=== PATIENT | male | born 1965 | race Caucasian/White ===

== ENCOUNTER → 2020-08-05 10:40 | Outpatient (CLI) | payer OTHER, SELFPAY ==
--- NOTE | 2020-08-05 | DI.CT.S_ITS ---
PROCEDURE: CT CHEST WO CON INDICATIONS: Cough TECHNIQUE: Noncontrast 5 mm thick sections acquired from the pulmonary apices to the posterior costophrenic angles. 1 mm lung window, 5 mm thick coronal and sagittal and 7 mm axial MIP reformats were then acquired. For radiation dose reduction, the following was used: automated exposure control, adjustment of mA and/or kV according to patient size. COMPARISON: None. FINDINGS: Image quality: Excellent. Lungs and pleura: Bilateral calcified subpleural upper lobe lung nodules, the larger measuring 2 mm in the right upper lobe posteriorly. No acute air space opacities. No pleural effusions or pneumothorax. Central and peripheral airways are patent and normal in caliber. Minimal central bilateral perihilar bronchial wall thickening. Mediastinum: Heart size is normal. No pericardial effusion. No mediastinal adenopathy by size criteria. Normal variant bovine arch anatomy. Thoracic aorta and central pulmonary arteries are normal in size. Esophagus is normal in caliber. No hiatal hernia. Bones and chest wall: No suspicious bony lesions. No vertebral body compression fractures. No axillary or supraclavicular adenopathy by size criteria. Thyroid gland is unremarkable . Abdomen: Short linear and curvilinear calcifications in the right renal upper pole cortex and 3 mm nonobstructing stone in the upper pole of the left kidney. Visualized upper abdominal solid organs and bowel loops appear otherwise normal in the absence of contrast. IMPRESSION: 1. Minor central bronchial wall thickening may reflect bronchitis, acute or chronic, or reactive airways disease as seen in asthma. 2. 2 benign calcified bilateral upper lobe lung nodules. 3. Possible peripheral calcification of the right upper pole renal lesion. Consider full kidney evaluation with renal protocol CT scan. Dictated by: Hallie Paez M.D. on 08/05/2020 at 13:30 Approved by: Hallie Paez M.D. on 08/05/2020 at 13:37
--- NOTE | 2020-08-05 | DI.CT.S_ITS ---
PROCEDURE: CT SOFT TISSUE NECK W CON INDICATIONS: COUGH TECHNIQUE: After the administration of intravenous contrast, 3.0 mm axial sections acquired from the sella to the aortic arch. Additional oblique axial 3.0 mm sections acquired through the pharynx. 3 mm thick coronal and sagittal reformats were generated. For radiation dose reduction, the following was used: automated exposure control. COMPARISON: [facility], CT, CT CHEST WO CON, 08/05/2020, 10:46. FINDINGS: Image quality: Excellent. Lymph nodes: No enlarged lymph nodes seen throughout the neck. Vessels: Visualized vasculature appears patent. Incidental note is made of a common origin of the right brachiocephalic artery and the left common carotid artery (bovine type arch). This is considered to be a developmental variant of no clinical consequence. Neck spaces: The oropharynx, nasopharynx, and pharynx demonstrate no mucosal lesions. The vocal cords, false vocal cords, pyriform sinuses, epiglottis, vallecula, and tongue base all appear normal. Extramucosal spaces appear unremarkable. Glands: The parotid and submandibular glands appear normal. Thyroid gland demonstrates no significant abnormality. Miscellaneous: Visualized brain and orbits appear normal. Lung apices appear clear. Superficial soft tissues appear normal. Bones: No suspicious bony lesions. Visualized sinuses and mastoids appear unremarkable. Age-appropriate bony degenerative changes are seen. IMPRESSION: No pharyngeal masses or other CT abnormality is seen to suggest a cause for the patient's presenting history of cough. No enlarged lymph nodes are seen. No soft tissue masses are detected. Incidental note is made of: Bovine type aortic branching pattern Dictated by: Luis Andrew M.D. on 08/05/2020 at 11:00 Approved by: Luis Andrew M.D. on 08/05/2020 at 11:02
== END ==
PROVIDERS: PCP Family Medicine; Referring Provider Family Medicine; Visit Provider Family Medicine
DX: R05 Cough (principal); R91.8 Other nonspecific abnormal finding of lung field; Z72.0 Tobacco use; Z77.090 Contact with and (suspected) exposure to asbestos; F10.10 Alcohol abuse, uncomplicated
CPT/HCPCS: 70491; 71250; Q9967

== ENCOUNTER → 2020-08-31 10:57 | Outpatient (CLI) | payer OTHER, MEDICAID, SELFPAY ==
--- NOTE | 2020-08-31 11:44 | DI.CT.S_ITS ---
PROCEDURE: CT ABDOMEN PELVIS WO/W CON INDICATIONS: Other specified disorders of kidney and ureter TECHNIQUE: Optional 5 mm thick noncontrast images acquired from the diaphragm to the symphysis pubis. After the administration of intravenous contrast, 5 mm thick images acquired from the diaphragm to the symphysis pubis after a 10-minute delay. 2 mm thick coronal and sagittal reformats were then performed of the kidneys and ureters. For radiation dose reduction, the following was used: automated exposure control, adjustment of mA and/or kV according to patient size. COMPARISON: None. FINDINGS: Image quality: Excellent. Lung bases: Lung bases are clear. Heart size is normal. Urinary system: Both kidneys are normal in size, without hydronephrosis but there is bilateral nonobstructive nephrolithiasis on pre-contrast images. The largest calculus is located at the lower 3rd collecting system of the right kidney, measuring up to 1.6 cm AP and 8 mm transverse. No perinephric fat stranding. There is normal bilateral renal enhancement. Renal calyces appear normal in morphology when filled with contrast. Opacified portions of both ureters demonstrate normal caliber. Bladder wall thickness is normal. No calcified bladder stones. Other solid organs: Liver is normal in size and enhancement. Gallbladder appears contracted . Biliary system is non dilated. Pancreas enhances normally. Spleen is normal in size and enhancement. No adrenal nodules. Peritoneum and bowel: Bowel loops demonstrate normal wall thickness and caliber. No free fluid or air. Nodes and vessels: No retroperitoneal or mesenteric adenopathy by size criteria. Aorta and inferior vena cava are normal in size. Abdominal wall: No ventral hernias. Pelvis: No pathologic free pelvic fluid. No inguinal hernias or adenopathy. Bones: No suspicious bony lesions. No vertebral body compression fractures. IMPRESSION: Bilateral collecting system calculi are present ranging from 2 mm to 1.6 x 0.8 cm. None of these are obstructive, and within the bladder no calculus is found. There is no sign of renal cortical or urothelial neoplasm, and throughout the lower chest, abdomen and pelvis no underlying infection or neoplasm is seen. Dictated by: Omar Raya M.D. on 08/31/2020 at 15:38 Approved by: Omar Raya M.D. on 08/31/2020 at 15:42
== END ==
PROVIDERS: PCP Family Medicine; Referring Provider Family Medicine; Visit Provider Family Medicine
DX: N28.89 Other specified disorders of kidney and ureter (principal); N20.0 Calculus of kidney
CPT/HCPCS: 74178; Q9967

== ENCOUNTER → 2021-11-24 10:57 | Outpatient (CLI) | payer OTHER, MEDICAID, SELFPAY ==
[2021-11-24 11:38] LABS: COVID19 -Nasal RAPID POSITIVE (Negative)
== END ==
PROVIDERS: PCP Family Medicine; Referring Provider Internal Medicine; Visit Provider Internal Medicine
DX: Z20.822 Contact with and (suspected) exposure to COVID-19 (principal)
CPT/HCPCS: 87635; C9803

== ENCOUNTER → 2021-11-24 12:10 | Outpatient (CLI) | payer OTHER, MEDICAID, SELFPAY ==
--- NOTE | 2021-12-03 13:39 | PM.PFT.1 ---
Pulmonary Function Test Referral & Results Date Patient Seen: 11/24/21 Requesting provider: Tony Jay Results: The spirometry demonstrates an FVC of 4.15 L which is 84% of predicted. The FEV1 was measured at 2.73 L which is 73% of predicted. The FEV1/FVC ratio was 66 which is 86% of predicted. Following the administration of bronchodilator there was a 24% improvement in FEV1 and a 79% improvement in FEF 25-75% Lung volumes show an SVC of 4.49 L which is 93% of predicted. The diffusing capacity was measured at 36.52 which is 112% of predicted. The maximum voluntary ventilation was reduced slightly Interpretation: This study demonstrates mild reduction in FEV1 and FEV1/FVC ratio suggesting mild obstructive lung disease. There is evidence of significant benefit following bronchodilator based on improvement in both FEV1 and FEF 25-75% as above Lung volumes are normal Diffusing capacity is normal
== END ==
PROVIDERS: PCP Family Medicine; Referring Provider Student in an Organized Health Care Education/Training Program; Visit Provider Student in an Organized Health Care Education/Training Program
DX: R05.3 Chronic cough (principal); J98.8 Other specified respiratory disorders; Z87.891 Personal history of nicotine dependence; Z20.822 Contact with and (suspected) exposure to COVID-19
CPT/HCPCS: 87635; 94060; 94726; 94729; C9803

== ENCOUNTER → 2024-03-03 09:31 | Outpatient (CLI) | payer OTHER, SELFPAY ==
[2024-03-03 20:16] LABS: Add Manual Diff / Slide Review NO; Basophils Absolute Auto 0 /uL (0-100); Basophils Percent Auto 0.7 % (0-2); Eosinophils Absolute Auto 200 /uL (0-450); Eosinophils Percent Auto 4.6 % (2-4); Hematocrit 41.3 % (41-53); Hemoglobin 13.9 g/dL (13.5-17.5); Lymphocytes Absolute Auto 1500 /uL (1100-4500); Lymphocytes Percent Auto 33.7 % (25-40); Mean Corpuscular HGB Conc 33.6 % (30-36); Mean Corpuscular Hemoglobin 31.5 PG (26-34); Mean Corpuscular Volume 93.8 fL (80-100); Monocytes Absolute Auto 500 /uL (0-900); Monocytes Percent Auto 10.8 % (3-14); Neutrophils Absolute Auto 2300 /uL (1500-7000); Neutrophils Percent Auto 50.2 % (50-75); Platelet Count 202 X10^3/uL (150-400); Red Cell Distribution Width 12.8 % (11.6-14.8); White Blood Cell Count 4.6 X10^3/uL (4.5-11.0)
[2024-03-03 20:30] LABS: Alanine Aminotransferase 18 IU/L (<50); Albumin 4.6 g/dL (3.5-5.0); Albumin Globulin Ratio 1.8 (1.0-2.8); Alkaline Phosphatase 57 U/L (38-126); Aspartate Aminotransferase 26 IU/L (17-59); BUN Creatinine Ratio 23.2 (6-22); Bilirubin Total 0.7 mg/dL (0.2-1.3); Blood Urea Nitrogen 16 mg/dL (9-20); Calcium 9.7 mg/dL (8.4-10.2); Carbon Dioxide 26 mmol/L (22-32); Chloride 103 mmol/L (98-107); Cholesterol 218 mg/dL (140-199); Estimated Glomerular Filt Rate > 60 mL/min (>60); Globulin 2.5 g/dL (1.7-4.1); Glucose 85 mg/dL (70-100); HDL Cholesterol 59 mg/dL (40-60); HEMOLYSIS 22 (0-50); LDL Cholesterol Calculated 148 mg/dL (<100); Potassium 4.4 mmol/L (3.4-5.1); Sodium 140 mmol/L (137-145); Total Protein 7.1 g/dL (6.3-8.2); Triglycerides 54 mg/dL (35-150)
[2024-03-04 09:53] LABS: Hep C Virus Ab w/Reflex Quant NEGATIVE s/c (NEGATIVE)
== END ==
PROVIDERS: PCP Family Medicine; Visit Provider Physician Assistant
DX: Z12.5 Encounter for screening for malignant neoplasm of prostate (principal); Z13.6 Encounter for screening for cardiovascular disorders; R26.81 Unsteadiness on feet; R05.3 Chronic cough
CPT/HCPCS: 80053; 80061; 85025; 86803; G0103

== ENCOUNTER 2024-05-14 08:12 | Day surgery (SDC) | payer OTHER, SELFPAY ==
--- NOTE | 2024-05-14 | PATH_ITS ---
[facility] Accession Number: [id number] No. of containers..01 Tissue . 01 Material submitted: . rectum - RECTAL POLYP . 01 Diagnosis: RECTAL POLYP: Hyperplastic polyp. [facility] 05/18/2024 1036 Local . 01 Electronically signed: . Sotero De La Rosa MD, PhD, Pathologist NPI- [id number] . 01 Gross description: . Received in formalin, designated rectal polyp, and consists of a 0.3 cm, flores-brown, polypoid tissue which is entirely submitted in cassette A1. ([id number]) /FRR 05/16/2024 1321 Local . 01 Pathologist provided ICD-10: K62.1 . 01 CPT . 974558 Specimen Comment: A courtesy copy of this report has been sent to [phone] Performed at: [address] [facility] [id number] MD Angel Zhao MD Phone: [phone]
[2024-05-14 08:34] VITALS: BP 148/88; PULSE 89; RESP 17; TEMP 36.8; O2SAT 99
--- NOTE | 2024-05-14 08:52 | P.HP_ITS ---
History of Present Illness History of Present Illness Date Patient Seen: 05/14/24 Time Patient Seen: 08:52 Chief complaint: Screening Colonoscopy Narrative: Oswaldo is a 58-year-old man who has a history of colon polyps. He did have a colonoscopy about 3 years ago with over 10 polyps removed. He then had a follow up colonoscopy 2 years ago with only 1 polyp removed. He was told to come back after 2 years for another colonoscopy. [facility] Medical History (Updated 03/25/24 @ 11:54 by Laura Escudero PA-C) Encounter for HCV screening test for low risk patient Screening PSA (prostate specific antigen) Chronic cough (~2015) Kidney stones (~2003) Family History (Updated 02/18/24 @ 19:59 by Roberta Santos) Father History of heart disease Mother Cancer Social History Smoking Status: Former smoker alcohol intake: never Meds Home Medications and Allergies Allergies Allergy/AdvReac Type Severity Reaction Status Date / Time No Known Drug Allergies Allergy Verified 05/14/24 08:33 Exam Vital Signs (past 8 hours): - 05/14/24 08:34 Temperature 98.3 F Pulse Rate 89 Respiratory Rate 17 Blood Pressure 148/88 H Pulse Oximetry 99 Oxygen Delivery Method Room Air Oxygen Delivery Method Room Air Const General: healthy appearing Assessment & Plan Assessment and plan (1) History of colon polyps: Status: Acute Plan Colonoscopy Time-Based Coding :: [TOTAL MINUTES] spent with patient and on the chart (including review of chart, obtaining history, exam, reviewing outside data, placing orders, documenting exam and treatment plan, and counseling patient) on [DATE].
--- NOTE | 2024-05-14 09:58 | PM.OP.COLON ---
Operative Date/Time/Diagnoses Date of procedure: 05/14/24 Time of procedure: 09:58 Pre-op diagnosis: History of polyps Post-op diagnosis: same Procedure & Clinicians Study performed: Colonoscopy Same procedure as scheduled: Yes Surgeon: Adin Li Procedure Notes Procedure in detail: Surgeon: Adin Li MD Anesthesia: Jessie Gavin MD Procedure: The patient was brought to the endoscopy suite, placed in left lateral decubitus position. The patient was connected to monitoring devices. A time-out was performed. Sedation was administered. Once the patient was adequately sedated, a digital rectal exam was performed and was normal. The scope was then inserted and advanced to the cecum where the appendiceal orifice was identified and photographed. The scope was then slowly withdrawn over greater than 6 minutes. The mucosa was thoroughly inspected. There was 1 small polyp in the rectum removed with a Jumbo forceps. The scope was retroflexed in the rectum. No other abnormalities were found. The scope was straightened and removed. The patient was awakened and brought to recovery. Scope withdrawal time: 9 minutes Sedation time: 14 minutes EBL: 2 mL Findings: Small rectal polyp Post-procedure Disposition: PACU
[2024-05-14 10:06] VITALS: BP 99/69; PULSE 68; RESP 17; TEMP 36.1; O2SAT 97
[2024-05-14 10:12] VITALS: BP 102/71; PULSE 79; RESP 16; O2SAT 99
[2024-05-14 10:17] VITALS: BP 131/79; PULSE 79; RESP 20; O2SAT 96
[2024-05-14 10:20] VITALS: BP 128/81; PULSE 70; RESP 19; TEMP 36.6; O2SAT 98
== END 2024-05-14 10:30 | disposition home or self-care (01) ==
PROVIDERS: PCP Physician Assistant; Referring Provider Surgery; Visit Provider Surgery
PROC: 0DJD8ZZ Inspection of Lower Intestinal Tract, Via Natural or Artificial Opening Endoscopic (ICD-10-PCS; CPT 45378; principal; 2024-05-14 09:15)
DX: Z12.11 Encounter for screening for malignant neoplasm of colon (principal); Z86.0100 Personal history of colon polyps, unspecified; K62.1 Rectal polyp
CPT/HCPCS: 45380; J2704

== ENCOUNTER → 2025-04-05 11:25 | Outpatient (CLI) | payer OTHER, SELFPAY ==
[2025-04-05 18:50] LABS: Add Manual Diff / Slide Review NO; Hematocrit 44.3 % (41-53); Hemoglobin 15.2 g/dL (13.5-17.5); Lymphocytes Absolute Auto 1500 /uL (1100-4500); Mean Corpuscular HGB Conc 34.4 % (30-36); Mean Corpuscular Hemoglobin 31.4 PG (26-34); Mean Corpuscular Volume 91.3 fL (80-100); Platelet Count 187 X10^3/uL (150-400)
[2025-04-05 19:21] LABS: HEMOLYSIS 19 (0-50)
[2025-04-05 19:29] LABS: Alanine Aminotransferase 22 IU/L (<50); Albumin 5.0 g/dL (3.5-5.0); Albumin Globulin Ratio 1.6 (1.0-2.8); Alkaline Phosphatase 58 U/L (38-126); Blood Urea Nitrogen 14 mg/dL (9-20); Calcium 10.0 mg/dL (8.4-10.2); Carbon Dioxide 28 mmol/L (22-32); Chloride 100 mmol/L (98-107); Cholesterol 224 mg/dL (140-199); Estimated Glomerular Filt Rate > 60 mL/min (>60); Globulin 3.1 g/dL (1.7-4.1); Glucose 86 mg/dL (70-99); HDL Cholesterol 73 mg/dL (40-60); Potassium 4.3 mmol/L (3.4-5.1); Sodium 139 mmol/L (137-145); Total Protein 8.1 g/dL (6.3-8.2); Triglycerides 65 mg/dL (35-150)
[2025-04-05 19:58] LABS: TSH w/ Reflex to FT4 1.18 uIU/mL (0.47-4.68)
[2025-04-06 15:14] LABS: HIV 1 & 2 Ab/Ag 4th Gen Combo NEGATIVE (NEGATIVE)
== END ==
PROVIDERS: PCP Physician Assistant; Visit Provider Physician Assistant
DX: R63.4 Abnormal weight loss (principal); L65.9 Nonscarring hair loss, unspecified; Z11.4 Encounter for screening for human immunodeficiency virus [HIV]; D64.9 Anemia, unspecified; E78.00 Pure hypercholesterolemia, unspecified; Z12.5 Encounter for screening for malignant neoplasm of prostate
CPT/HCPCS: 80053; 80061; 84443; 85025; 87389; G0103